=== PATIENT | male | born 1970 | race Hispanic/Latino ===

== ENCOUNTER 2018-11-26 10:39 | Emergency (ER) | payer OTHER ==
[2018-11-26] MEDS ORDERED: CEFTRIAXONE SODIUM 2 GM VIAL ONE (11:00)
[2018-11-26] MEDS ORDERED: SODIUM CHLORIDE 0.9% 50 ML IV ONE (11:01)
[2018-11-26] MEDS ORDERED: SODIUM CHLORIDE 0.9% 1000ML 1,000 ML IV ONE (11:01)
[2018-11-26] MEDS ORDERED: ACETAMINOPHEN EXTRA STRENGTH 500 MG TABLET ONE (11:01)
[2018-11-26 11:43] LABS: BASOPHILS % (AUTO) 0.8 % (0.0-5.0); EOSINOPHILS % (AUTO) 1.5 % (0.0-8.0); HEMATOCRIT 44.7 % (42-54); LYMPHOCYTES % (AUTO) 7.3 % (21.0-51.0); MEAN CORPUSCULAR HEMOGLOBIN 27.4 pg (27.0-33.0); MEAN CORPUSCULAR HGB CONC 32.8 g/dL (32.0-36.0); MEAN CORPUSCULAR VOLUME 83.4 fL (79-99); MONOCYTES % (AUTO) 11.6 % (3.0-13.0); NEUTROPHILS % (AUTO) 78.8 % (40.0-77.0); PLATELET COUNT (AUTO) 156 K/uL (130-400); RED BLOOD CELL COUNT(AUTO) 5.36 MIL/uL (4.50-6.20); RED CELL DISTRIBUTION WIDTH 16.9 % (11.0-15.5)
[2018-11-26 11:51] LABS: CARBON DIOXIDE 25 mmol/L (21-32); CHLORIDE 100 mmol/L (101-111); GLOMERULAR FILTR. RATE CALC 84 mL/min (>60); GLUCOSE,RANDOM 218 mg/dL (70-105); POTASSIUM 3.9 mmol/L (3.5-5.1); SODIUM SERUM 133 mmol/L (136-145); UREA NITROGEN, BLOOD 9 mg/dL (7-18)
[2018-11-26 11:52] LABS: INR 1.39 (0.85-1.15); PROTHROMBIN TIME 14.5 SEC (9.6-11.6)
[2018-11-26 12:02] LABS: ALANINE AMINOTRANSFERASE 111 U/L (12-78); ALBUMIN 3.1 g/dL (3.5-5.0); ASPARTATE AMINOTRANSFERASE 129 U/L (10-37); CREATINE KINASE, TOTAL 80 U/L (21-232); MYOGLOBIN 23 ng/mL (10-92); TOTAL PROTEIN, SERUM 8.8 g/dL (6.0-8.3); TROPONIN I < 0.04 ng/mL (0.00-0.06)
[2018-11-26 12:11] LABS: APPEARANCE,URINE Cloudy (CLEAR); BILIRUBIN,URINE Moderate (NEGATIVE); COLOR,URINE Dark Yellow (YELLOW); GLUCOSE, URINE (UA) Negative (NEGATIVE); KETONES,URINE Trace mg/dL (NEGATIVE); LEUKOCYTE ESTERASE ,URINE Small (NEGATIVE); NITRATE,URINE Positive (NEGATIVE); OCCULT BLOOD,URINE Trace (NEGATIVE); PH,URINE 5.5 (5.0-8.0); PROTEIN,URINE POS 2+ mg/dL (NEGATIVE)
[2018-11-26 12:22] LABS: PARTIAL THROMBOPLASTIN TIME 31.7 SEC (26.3-35.5)
[2018-11-26 12:25] LABS: BACTERIA,URINE Few /HPF (None Seen); MUCUS,URINE Moderate LPF (None Seen); SQUAMOUS EPITHELIAL CELL,UR Few /HPF (0-2); WBC,URINE 0-1 /HPF (0-1)
== END 2018-11-26 13:58 | disposition home or self-care (01) ==
LOC: EDH 10:39 → UNDOADMOB 10:40 → EDHIP 10:40 → EDH 13:58
DX: B34.9 Viral infection, unspecified (principal); E11.9 Type 2 diabetes mellitus without complications; I10 Essential (primary) hypertension
CPT/HCPCS: 36415; 71046; 76705; 80053; 81001; 82550; 83605; 83874; 84484; 85025; 85610; 85730; 87040 ×2; 87088; 87804 ×2; 93005; 96374; 99285; J0696; J7030; 87077; 87186

== ENCOUNTER 2018-12-10 01:36 | Emergency (ER) | payer SELFPAY ==
[2018-12-10] MEDS ORDERED: KETOROLAC TROMETHAMINE 60 MG/2 ML VIAL ONE (02:20)
[2018-12-10] MEDS ORDERED: LIDOCAINE 5% TOPICAL PATCH TP ONE (02:21)
== END 2018-12-10 03:04 | disposition home or self-care (01) ==
LOC: EDH 01:36
DX: G44.209 Tension-type headache, unspecified, not intractable (principal); M62.838 Other muscle spasm; I10 Essential (primary) hypertension; E11.9 Type 2 diabetes mellitus without complications
CPT/HCPCS: 82948; 96372; 99283; J1885

== ENCOUNTER → 2021-10-09 | Outpatient (CLI) | payer OTHER | END | disposition home or self-care (01) | LOC: RAH 15:49 | PROVIDERS: ATTEND Family Medicine | DX: M47.816 Spondylosis without myelopathy or radiculopathy, lumbar region (principal); Z02.71 Encounter for disability determination | CPT/HCPCS: 72100 ==

== ENCOUNTER 2022-01-16 15:17 | Emergency (ER) | payer OTHER ==
[~2022-01-16] VITALS: Ht 160 cm; Wt 100.7 kg
[2022-01-16 15:24] VITALS: BP 157/76
[2022-01-16 16:11] LABS: APPEARANCE,URINE CLEAR (CLEAR); BILIRUBIN,URINE NEGATIVE (NEGATIVE); COLOR,URINE YELLOW (YELLOW); GLUCOSE, URINE (UA) >=1000 mg/dL (NEGATIVE); KETONES,URINE NEGATIVE (NEGATIVE); LEUKOCYTE ESTERASE ,URINE NEGATIVE (NEGATIVE); NITRATE,URINE NEGATIVE (NEGATIVE); OCCULT BLOOD,URINE NEGATIVE (NEGATIVE); PROTEIN,URINE NEGATIVE (NEGATIVE); UROBILINOGEN,URINE 0.2 mg/dL (0.2-1.0)
[2022-01-16 16:12] LABS: BASOPHILS % (AUTO) 0.5 % (0.0-5.0); EOSINOPHILS % (AUTO) 2.2 % (0.0-8.0); HEMATOCRIT 41.3 % (42-54); LYMPHOCYTES % (AUTO) 9.5 % (21.0-51.0); MEAN CORPUSCULAR HEMOGLOBIN 28.4 pg (27.0-33.0); MEAN CORPUSCULAR HGB CONC 32.9 g/dL (32.0-36.0); MEAN CORPUSCULAR VOLUME 86.2 fL (79-99); MONOCYTES % (AUTO) 9.3 % (3.0-13.0); NEUTROPHILS % (AUTO) 78.2 % (40.0-77.0); PLATELET COUNT (AUTO) 104 K/uL (130-400); RED BLOOD CELL COUNT(AUTO) 4.79 MIL/uL (4.50-6.20); RED CELL DISTRIBUTION WIDTH 14.9 % (11.0-15.5); WHITE BLOOD COUNT (AUTO) 5.8 K/uL (4.8-10.8)
[2022-01-16 16:22] LABS: CREATININE 1.2 mg/dL (0.5-1.5); POTASSIUM 3.5 mmol/L (3.5-5.1)
[2022-01-16 16:27] LABS: ALBUMIN 3.4 g/dL (3.5-5.0); CRP QUANTITATIVE 12.4 mg/L (0.00-9.0); TOTAL PROTEIN, SERUM 8.1 g/dL (6.0-8.3)
[2022-01-16] MEDS ORDERED: 0.9%NACL 1000ML 1,000 ML IV SCH (16:30)
[2022-01-16] MEDS ORDERED: INSULIN HUMULIN R 100 UNIT/ML 3ML IV ONE (16:30)
[2022-01-16 16:36] LABS: B-TYPE NATRIURETIC PEPTIDE 12 pg/mL (0-100)
[2022-01-16 16:39] LABS: BACTERIA,URINE Rare /HPF (None Seen); RBC,URINE 0-1 /HPF (0-1); SQUAMOUS EPITHELIAL CELL,UR Rare /HPF (0-2); WBC,URINE 0-1 /HPF (0-1)
[2022-01-16] MEDS ORDERED: LACTULOSE 20 GM/30 ML UDCUP PO ONE (17:00)
[2022-01-16] MEDS ORDERED: LACT10PA5 PO (17:51)
== END 2022-01-16 18:18 | disposition home or self-care (01) ==
LOC: EDH 15:17
DX: E11.9 Type 2 diabetes mellitus without complications (principal); E87.1 Hypo-osmolality and hyponatremia; I10 Essential (primary) hypertension; R79.89 Other specified abnormal findings of blood chemistry; E66.01 Morbid (severe) obesity due to excess calories; D64.9 Anemia, unspecified; Z68.39 Body mass index [BMI] 39.0-39.9, adult; Z20.822 Contact with and (suspected) exposure to COVID-19
CPT/HCPCS: 99284; 96374; 71045; 87635; 96361; 82550; 84484; 80053; 83880; 82140; 85025; 87804 ×2; 82948; 86140; 81001; 36415; J1815; C9803; J7030

== ENCOUNTER 2024-04-24 21:44 | Emergency (ER) | payer BC, MEDICAID ==
[~2024-04-24] VITALS: Ht 160 cm; Wt 80.7 kg
[~2024-04-24 21:44] MED LIST: LACT10PA5 PO
[2024-04-24 21:45] VITALS: BP 167/78; PULSE 86; RESP 16; TEMP 97.8
--- NOTE | 2024-04-24 21:45 | NUR ---
UA CUP PROVIDED
[2024-04-24] MEDS: morPHINE 2 MG SYG IM STA (23:06)
--- NOTE | 2024-04-24 23:49 | ERN ---
ED Note History of Present Illness Stated Complaint: LOW BACK PAIN Chief Complaint: Back Pain-No Injury Time Seen by MD: 21:56 Time Seen by Midlevel: 21:58 Dictation: 53-year-old male with a history of hypertension, diabetes, liver cirrhosis complaining of chronic lower back pain states started over one month ago. Has been seen by PCP and has been sent to a specialist but has a appointment until Friday. Denies any recent traumas. Patient states couple of days ago he was getting up from bed when he felt dizzy and bumped his head with a anymore, however at this time denies having any headache, altered mentation, nausea, vomiting. States they usually give him morphine to control his pain. Allergies: Coded Allergies: No Known Drug Allergies (Unverified Allergy, Unknown, 11/26/18) Home Meds Active Scripts Lactulose (Lactulose) 10 Gm Packet, 10 GM PO DAILY, #30 PKT Prov:MICHI MÉNDEZ 01/16/22 Past Medical History Past Medical History: Anemia, Diabetes-Type II, Hypertension, Liver Disease Additional Past Medical Hx: ULCERS, morbidly obese Surgical History: None Family History: Negative Social History: Negative Review of System Dictation Constitutional: Negative for fever,chills, and weight loss Eyes: Negative for injury, pain,redness, and discharge ENT: Negative for injury,pain or swelling Cardiovascular: Negative for chest pain, palpitations, and edema Respiratory: Negative for shortness of breath, cough, and wheezing, Abdomen/GI: Negative for abdominal pain, nausea, vomiting, diarrhea, and constipation Back: Negative for injury and pain : Negative for injury, bleeding and discharge MS/Extremity: Negative for injury and deformity complaining of lower back pain Skin: Negative for rash, and discoloration Neuro: Negative for headache, weakness, numbness, tingling, and seizure Psych: Negative for suicide ideation, homicidal ideation, and hallucinations Review of Systems: was completed Initial Vital Sign VS Vital Signs Date Time Temp Pulse Resp B/P (MAP) Pulse Ox O2 Delivery O2 Flow Rate FiO2 04/24/24 21:45 97.9 86 16 167/78 100 Room Air Physical Exam Dictation General: awake, alert, NAD Head/Face: Normocephalic, atraumatic Eyes: PERRL, EOMI, vision at baseline ENT: oral cavity clear, TMs clear, no signs of infection Neck: Trachea midline, supple, no nuchal rigidity Cardiovascular: RRR, normal S1/S2, No MRGs, no JVD Respiratory: CTAB, no respiratory distress, No rales or wheezes Abdomen: Soft, non-tender, non-distended, normal bowel sounds, no guarding or r ebound. Skin: Warm, dry, normal turgor, no rash MS/Extremity: Pulses equal, no cyanosis, neurovascular intact, FROM Neuro: COAx4, GCS 15, strength 5/5, CN 2-12 intact, normal cerebellar exam, normal gait, Psych: Normal behavior, mood, and affect normal ED Course ED Course Orders Procedure Category Date Status Time Morphine 2mg Syg PHA 04/24/24 Complete (Morphine 2mg Syg) 22:45 Current Medications Medications (Trade) Dose Ordered Sig/Yakov Route PRN Reason Start Time Stop Time Status Last Admin Dose Admin Morphine Sulfate (morPHINE 2MG SYG) 2 mg ONCE STAT IM 04/24/24 22:45 04/24/24 22:48 DC 04/24/24 23:06 Vital Signs Date Time Temp Pulse Resp B/P (MAP) Pulse Ox O2 Delivery O2 Flow Rate FiO2 04/24/24 21:45 97.9 86 16 167/78 100 Room Air Medical Decision Making MDM MDM: 53-year-old male with a history of hypertension, diabetes, liver cirrhosis complaining of chronic lower back pain states started over one month ago. Has been seen by PCP and has been sent to a specialist but has a appointment until Friday. Denies any recent traumas. Patient states couple of days ago he was getting up from bed when he felt dizzy and bumped his head with a anymore, however at this time denies having any headache, altered mentation, nausea, vomiting. States they usually give him morphine to control his pain. On physical exam patient has clear bilateral lung sounds, abdomen is soft and nondistended. GCS 15, no neurological deficits. Denies any numbness, tingling, saddle anesthesia or incontinence. After morphine IM patient states he felt relief however is requesting more pain medication prior to discharge. Discussed patient that I will give him a prescription to go home with in one more dose of pain medication here in ER but has to follow up with PCP and or the specialist on Friday. Patient verbalized understanding, answered all questions. Differential diagnosis: Chronic back pain, sciatica, muscle spasm Rationale: Tests considered and ordered secondary to shared decision making include: Previous outside records reviewed: Old ER visits. Risk of complication and/or morbidity or mortality of patient management: None Medications-Per medication reconciliation Need for hospitalization: Patient does not meet criteria for hospitalization. Need for emergency major/minor surgery: No There are no social concerns with this patient. Prescription drug management Prescriptions will include symptomatic care Patient's prior external medical records from other ER visits were reviewed by me as indicated. Prior testing and results from previous visits were reviewed. Prior tests were taken into account with medical decision making and resource utilization, independent historian/historians were used to obtain complete medical history. I independently interpreted the test that were performed, results were reviewed by me and considered findings on radiology if ordered. Medical management and examination interpretation discussions were had by me with other qualified healthcare professionals as indicated for the patient's care. DX & DISP Disposition: Discharge Departure Impression: Primary Impression: Back pain Condition: Stable Additional Instructions: Please follow up with your specialist as scheduled on Friday. Return to the ER if symptoms worsen. Referrals: ADRIANA COVINGTON DO (PCP) Time of Disposition: 23:48 I have reviewed the case, and I agree with, Diagnosis and Plan CARYL JAVED NP Apr 24, 2024 23:49
[2024-04-24] MEDS: oxyCODONE/aceTAMIN 5/325MG TAB PO STA (23:56)
== END 2024-04-24 23:59 | disposition home or self-care (01) ==
LOC: EDH 21:44
DX: G89.29 Other chronic pain (principal); M54.50 Low back pain, unspecified; E11.9 Type 2 diabetes mellitus without complications; E66.01 Morbid (severe) obesity due to excess calories; I10 Essential (primary) hypertension; Z79.899 Other long term (current) drug therapy
CPT/HCPCS: 99283; 96372; J2270

== ENCOUNTER 2024-10-30 00:05 | Emergency (ER) | payer BC, MEDICAID ==
[~2024-10-30] VITALS: Ht 160 cm; Wt 70.3 kg
--- NOTE | 2024-10-30 00:08 | NUR ---
UA CUP PROVIDED
[2024-10-30] MEDS: morPHINE 2 MG SYG IVP ONE (00:36)
--- NOTE | 2024-10-30 00:52 | ERN ---
General Chief Complaint: Multiple Complaints Stated Complaint: ABD BLOATING, SOB Time Seen by MD: 00:19 Source: patient History of Present Illness Initial Comments Patient is a 54-year-old male with cirrhosis who gets weekly paracentesis. Unfortunately he was not able to get to his weekly appointment for paracentesis today and so he comes here bloated with rib pain and difficulty breathing. Allergies: Coded Allergies: No Known Drug Allergies (Unverified Allergy, Unknown, 11/26/18) Home Meds Active Scripts Lactulose (Lactulose) 10 Gm Packet, 10 GM PO DAILY, #30 PKT Prov:MICHI MÉNDEZ 01/16/22 Past Medical History Past Medical History: Anemia, Diabetes-Type II, Hypertension, Liver Disease Medical History Other: ULCERS, morbidly obese, LIVER CANCER Past Surgical History: None Family History Family History: Negative Social History Social History: Negative Constitutional: (-) chills, (-) diaphoresis, (-) fever, (-) malaise, (-) weakness, (-) other documentation EENTM: (-) eye pain, (-) blurred vision, (-) tearing, (-) double vision, (-) ear pain, (-) ear discharge, (-) nose pain, (-) nose congestion, (-) throat pain, (-) Throat swelling, (-) mouth pain, (-) tooth pain, (-) mouth swelling, (-) other documentation Respiratory: (-) cough, (-) orthopnea, (-) short of breath, (-) stridor, (-) wheezing, (-) other documentation Cardiovascular: (+) dyspnea on exertion Gastrointestinal/Abdominal: (-) nausea, (-) vomiting, (-) diarrhea, (-) abdominal pain, (-) abdominal distention, (-) constipation, (-) rectal bleeding, (-) dark stool/melena, (-) other documentation Musculoskeletal: (+) Flank Pain Physical Exam General Appearance: (+) mild distress Orientation: (+) alert, (+) oriented x 3 Head/Face Trauma: No Eye: bilateral eye normal inspection, bilateral eye PERRL, bilateral eye EOMI Ear, Nose, Throat: (+) hearing grossly normal, (+) normal ENT inspection Neck: (+) normal inspection, (+) supple Respiratory: (+) chest non-tender, (+) lungs clear, (+) decreased breath sounds Heart: (+) regular, (+) no gallop Vascular: (+) no edema Gastrointestinal: (+) soft, (+) distended Results Laboratory and Microbiology Lab and Micro Result Laboratory Tests Test 10/30/24 00:44 Prothrombin Time 17.6 SEC (9.6-11.6) H Prothromb Time International Ratio 1.76 (0.85-1.15) H MDM Patient is here for his paracentesis. I have ordered ultrasound to igor the skin. We will consent the patient and do a paracentesis. I have ordered PT INR. Patient is at low risk for bleeding. The INR will be a measure of patient's liver function. Patient's INR is 1.76. Please see procedure note for details. 5-1/2 L of bland ascitic fluid was removed, there was no need for albumin replacement. ED Course Orders Procedure Category Date Status Time *Nursing CPOE 10/30/24 Transmitted Communication: 00:19 Prothrombin Time With LAB 10/30/24 Complete INR 00:19 Us Abdominal Ruq\Ltd US 10/30/24 Taken 00:19 Morphine 2mg Syg PHA 10/30/24 Complete (Morphine 2mg Syg) 00:30 Lidocaine 1%-Epi PHA 10/30/24 Complete 1:100,000 (Lidocaine 00:54 Current Medications Medications (Trade) Dose Ordered Sig/Yakov Route PRN Reason Start Time Stop Time Status Last Admin Dose Admin Lidocaine/ Epinephrine (Lidocaine 1%-Epi 1:100,000) 20 ml STK-MED ONCE .ROUTE 10/30/24 00:54 10/30/24 00:54 DC Morphine Sulfate (morPHINE 2MG SYG) 2 mg ONCE ONCE IVP 10/30/24 00:30 10/30/24 00:31 DC 10/30/24 00:36 Vital Signs Date Time Temp Pulse Resp B/P (MAP) Pulse Ox O2 Delivery O2 Flow Rate FiO2 10/30/24 01:13 98.8 75 18 66/ 99 Room Air* 0 21 10/30/24 00:06 98.2 99 22 146/67 99 Room Air Procedure Dictation With the help of ultrasound we found a good window for inserting a catheter for paracentesis. Using the paracentesis kit read numbed up the skin with 1% lidocaine a hole in the skin was created with a 11. Blade. The drainage catheter was placed into the abdominal cavity. And 5-1/2 L were removed. No complications Additional Procedures Additional Procedures : Additional Procedures: other (Paracentesis) DX & DISP Disposition: Discharge Departure Impression: Primary Impression: Ascites due to alcoholic cirrhosis Condition: Stable Additional Instructions: Please return if you have signs and symptoms of an abdominal infection from this procedure or if ascitic fluid keeps draining out of the skin puncture. Referrals: ADRIANA COVINGTON DO (PCP) ALEKS SOLIS MD Oct 30, 2024 00:52
[2024-10-30 01:04] LABS: INR 1.76 (0.85-1.15); PROTHROMBIN TIME 17.6 SEC (9.6-11.6)
[2024-10-30] MEDS: LIDOCAINE 1%-EPI 1:100,000 20 ML VIAL ONE (01:13)
--- NOTE | 2024-10-30 02:07 | NUR ---
PARACENTESIS DONE AT BEDSIDE, CONSENT SECURED REMOVED 5.5L
[2024-10-30 02:24] VITALS: BP 125/65; PULSE 72; RESP 18; TEMP 98.8; O2SAT 99
--- NOTE | 2024-10-30 08:48 | HMCIMG ---
Ultrasound guidance provided for paracentesis done by another practitioner. Impression: Ultrasound guidance provided for paracentesis done by another practitioner.
== END 2024-10-30 02:26 | disposition home or self-care (01) ==
LOC: EDH 00:05
DX: K70.31 Alcoholic cirrhosis of liver with ascites (principal); E11.9 Type 2 diabetes mellitus without complications; I10 Essential (primary) hypertension
CPT/HCPCS: 49083; 99285; 96374; 76705; 85610; 36415; J3490; J2270

== ENCOUNTER 2024-12-10 22:22 | Emergency (ER) | payer MEDICAID ==
[~2024-12-10] VITALS: Ht 160 cm; Wt 71.2 kg
--- NOTE | 2024-12-10 22:25 | NUR ---
UA CUP PROVIDED AND SHOWN TO RESTROOM
--- NOTE | 2024-12-10 22:51 | ERN ---
General Chief Complaint: Back Pain-No Injury Stated Complaint: BACK PAIN, BILATERAL SIDE " CHRONIC" Time Seen by MD: 22:29 Source: patient History of Present Illness Initial Comments Patient is a 54-year-old male with liver cancer who is being treated at [facility]. He lives down here and gets weekly paracentesis therapy. He got paracentesis earlier today. He comes into the emergency room because of excruciating back pain wanting to get some Dilaudid. Allergies: Coded Allergies: No Known Drug Allergies (Unverified Allergy, Unknown, 11/26/18) Home Meds Active Scripts Lactulose (Lactulose) 10 Gm Packet, 10 GM PO DAILY, #30 PKT Prov:MICHI MÉNDEZ 01/16/22 Past Medical History Past Medical History: Anemia, Diabetes-Type II, Hypertension, Liver Disease Medical History Other: ULCERS, morbidly obese, LIVER CANCER STAGE 3 Past Surgical History: None Family History Family History: Negative Social History Social History: Negative Constitutional: (-) chills, (-) diaphoresis, (-) fever, (-) malaise, (-) weakness, (-) other documentation EENTM: (-) eye pain, (-) blurred vision, (-) tearing, (-) double vision, (-) ear pain, (-) ear discharge, (-) nose pain, (-) nose congestion, (-) throat pain, (-) Throat swelling, (-) mouth pain, (-) tooth pain, (-) mouth swelling, (-) other documentation Respiratory: (-) cough, (-) orthopnea, (-) short of breath, (-) stridor, (-) wheezing, (-) other documentation Cardiovascular: (-) chest pain, (-) edema, (-) palpitations, (-) syncope, (-) dyspnea on exertion, (-) other documentation Gastrointestinal/Abdominal: (-) nausea, (-) vomiting, (-) diarrhea, (-) abdominal pain, (-) abdominal distention, (-) constipation, (-) rectal bleeding, (-) dark stool/melena, (-) other documentation Musculoskeletal: (+) back pain, (+) Flank Pain Skin: (-) laceration, (-) contusion, (-) abrasion, (-) abscess, (-) rash, (-) change in color, (-) change in hair, (-) change in nails, (-) diaphoresis, (-) dryness, (-) other documentation Physical Exam General Appearance: (+) mild distress Orientation: (+) alert, (+) oriented x 3 Head/Face Trauma: No Eye: bilateral eye normal inspection, bilateral eye PERRL, bilateral eye EOMI Ear, Nose, Throat: (+) hearing grossly normal, (+) normal ENT inspection Neck: (+) normal inspection, (+) supple Respiratory: (+) chest non-tender, (+) lungs clear, (+) well ventilated Heart: (+) regular, (+) no gallop Vascular: (+) no edema, (+) normal peripheral pulse Gastrointestinal: (+) soft, (+) non-tender Gastrointestinal Comment Abdomen mildly distended but soft consistent with a recent paracentesis. Results Laboratory and Microbiology Lab and Micro Result Laboratory Tests Test 12/10/24 22:30 12/10/24 23:17 Urine Color YELLOW (YELLOW) Urine Appearance CLEAR (CLEAR) Urine pH 5.0 (5.0-8.0) Urine Specific [place] 1.011 (1.001-1.031) Urine Protein NEGATIVE mg/dL (NEGATIVE) Urine Glucose (UA) NEGATIVE mg/dL (NEGATIVE) Urine Ketones NEGATIVE mg/dL (NEGATIVE) Urine Occult Blood NEGATIVE (NEGATIVE) Urine Nitrate NEGATIVE (NEGATIVE) Urine Bilirubin NEGATIVE mg/dL (NEGATIVE) Urine Urobilinogen 0.2 mg/dL (0.2-1.0) Urine Leukocyte Esterase NEGATIVE Jeannette/uL White Blood Count 3.1 K/uL (4.8-10.8) L Red Blood Count 2.83 MIL/uL (4.50-6.20) L Hemoglobin 9.4 g/dL (14.0-18.0) L Hematocrit 28.7 % (42-54) L Mean Corpuscular Volume 101.4 fL (79-99) H Mean Corpuscular Hemoglobin 33.2 pg (27.0-33.0) H Mean Corpuscular Hemoglobin Concent 32.8 g/dL (32.0-36.0) Red Cell Distribution Width 16.9 % (11.0-15.5) H Platelet Count 86 K/uL (130-400) L Mean Platelet Volume 12.2 fL (7.5-10.5) H Immature Granulocyte % (Auto) 0.3 % (0-1) Neutrophils (%) (Auto) 76.1 % (40.0-77.0) Lymphocytes (%) (Auto) 7.5 % (21.0-51.0) L Monocytes (%) (Auto) 10.5 % (3.0-13.0) Eosinophils (%) (Auto) 4.9 % (0.0-8.0) Basophils (%) (Auto) 0.7 % (0.0-5.0) Neutrophils # (Auto) 2.3 K/uL (1.8-7.7) Lymphocytes # (Auto) 0.2 K/uL (1.0-4.8) L Monocytes # (Auto) 0.3 K/uL (0.1-1.0) Eosinophils # (Auto) 0.15 K/uL (0.00-0.70) Basophils # (Auto) 0.02 K/uL (0.00-0.20) Absolute Immature Granulocyte (auto 0.01 K/uL (0-1) Nucleated Red Blood Cells 0.0 % (0.0-0.19) Sodium Level 135 mmol/L (136-145) L Potassium Level 4.0 mmol/L (3.5-5.1) Chloride Level 101 mmol/L (101-111) Carbon Dioxide Level 28 mmol/L (21-32) Blood Urea Nitrogen 20 mg/dL (7-18) H Creatinine 1.3 mg/dL (0.5-1.3) Glomerular Filtration Rate Calc 65 mL/min (>90) Random Glucose 163 mg/dL (70-105) H Total Calcium 8.4 mg/dL (8.5-10.1) L MDM I have actually met this patient before and have performed a paracentesis on him myself. Patient needs pain control for his back and flank associated with his ascites in his liver cancer. The pain is chronic and its presence does not indicate an acute problem. I have given him 1 mg of IV Dilaudid now and I will discharge him with a prescription for 2 mg tablets of Dilaudid. I told him that his doctors at [place] can call down here to a pharmacy to help him with his pain control. He has agreed to do this. Therefore I am going to give him only a small amount of 2 mg p.o. Dilaudid tablets to tide him over until Friday or Friday. I will also get a CBC and a chemistry panel. Patient's CBC shows pancytopenia. Chemistry panels okay urine shows no evidence of infection. Patient himself feels so much better and would like to go home. I will discharge him with a prescription for Dilaudid ED Course Orders Procedure Category Date Status Time Urinalysis Profile LAB 12/10/24 Complete 22:37 Hydromorphone 1 Mg PHA 12/10/24 Complete Inj (Dilaudid 1mg Inj 23:00 Basic Metabolic Panel LAB 12/10/24 Complete 23:00 Cbc With Differential LAB 12/10/24 In Process 23:00 Current Medications Medications (Trade) Dose Ordered Sig/Yakov Route PRN Reason Start Time Stop Time Status Last Admin Dose Admin Hydromorphone HCl (DiLAUDid 1MG INJ) 1 mg ONCE ONCE IVP 12/10/24 23:00 12/10/24 23:01 DC 12/10/24 23:02 Vital Signs Date Time Temp Pulse Resp B/P (MAP) Pulse Ox O2 Delivery O2 Flow Rate FiO2 12/10/24 23:00 98.8 90 18 110/48 99 Room Air* 0 21 12/10/24 22:23 97.9 104 20 111/58 99 Room Air DX & DISP Disposition: Discharge Departure Impression: Primary Impression: Back pain Condition: Stable Scripts Hydromorphone HCl (Dilaudid) 2 Mg Tablet 1 TAB PO [id number] PRN for pain for 5 Days, #10 TAB 0 Refills Prov: ALEKS SOLIS MD 12/10/24 Additional Instructions: Please call your physicians in [place] to renew this prescription. Referrals: ADRIANA COVINGTON DO (PCP) ALEKS SOLIS MD Dec 10, 2024 22:51
[2024-12-10 23:16] LABS: APPEARANCE,URINE CLEAR (CLEAR); GLUCOSE, URINE (UA) NEGATIVE (NEGATIVE); LEUKOCYTE ESTERASE ,URINE NEGATIVE Leu/uL (NEGATIVE); NITRATE,URINE NEGATIVE (NEGATIVE); OCCULT BLOOD,URINE NEGATIVE (NEGATIVE)
[2024-12-10 23:17] LABS: ADD UA MICROSCOPIC NO
[2024-12-10 23:23] LABS: IMMATURE GRANULOCYTE ABSOLUTE 0.01 K/uL (0-1); NUCLEATED RED BLOOD CELLS 0.0 % (0.0-0.19); PLATELET COUNT (AUTO) 86 K/uL (130-400); RED BLOOD CELL COUNT(AUTO) 2.83 MIL/uL (4.50-6.20); RED CELL DISTRIBUTION WIDTH 16.9 % (11.0-15.5); WHITE BLOOD COUNT (AUTO) 3.1 K/uL (4.8-10.8)
[2024-12-10 23:31] LABS: CREATININE 1.3 mg/dL (0.5-1.3); GLOMERULAR FILTR. RATE CALC 65.0 mL/min (>90); GLUCOSE,RANDOM 163.0 mg/dL (70-105); SODIUM SERUM 135.0 mmol/L (136-145); UREA NITROGEN, BLOOD 20.0 mg/dL (7-18)
[2024-12-10] MEDS ORDERED: HYDR2TAB5 PO (23:42)
[2024-12-10 23:58] VITALS: BP 120/69; PULSE 87; RESP 11; TEMP 98.8; O2SAT 99
[2024-12-11 00:17] LABS: WBC MORPHOLOGY CONSISTENT W/DIFF
== END 2024-12-11 00:13 | disposition home or self-care (01) ==
LOC: EDH 22:22
DX: M54.9 Dorsalgia, unspecified (principal); E11.9 Type 2 diabetes mellitus without complications; E66.01 Morbid (severe) obesity due to excess calories; I10 Essential (primary) hypertension; Z79.899 Other long term (current) drug therapy
CPT/HCPCS: 99283; 96374; 80048; 85025; 81003; 36415; J1171

== ENCOUNTER 2024-12-17 23:26 | Emergency (ER) | payer MEDICAID ==
[~2024-12-17] VITALS: Ht 160 cm; Wt 67.1 kg
[~2024-12-17 23:26] MED LIST changes: +HYDR2TAB5 PO
[2024-12-17 23:27] VITALS: BP 124/64; PULSE 97; RESP 20; TEMP 98.7; O2SAT 100
--- NOTE | 2024-12-18 00:23 | ERN ---
General Chief Complaint: Back Pain-No Injury Stated Complaint: LOW BACK PAIN Time Seen by MD: 23:36 Time Seen by Midlevel: 23:36 Source: patient History of Present Illness Initial Comments The patient is a 54-year-old male with a past medical history of liver cancer and chronic back pain presenting to the emergency department for evaluation low back pain. The patient was seen in our emergency department last week for the same complaint. At that time he was given Dilaudid in the emergency department and sent home with a prescription for Dilaudid for a total of 10 tablets. The patient is requesting a new prescription for Dilaudid in his also requesting a dose in the emergency department. Denies any other symptoms Allergies: Coded Allergies: No Known Drug Allergies (Unverified Allergy, Unknown, 11/26/18) Home Meds Active Scripts Hydromorphone HCl (Dilaudid) 2 Mg Tablet, 1 TAB PO [id number] PRN for pain for 5 Days, #10 TAB 0 Refills Prov:ALEKS SOLIS MD 12/10/24 Lactulose (Lactulose) 10 Gm Packet, 10 GM PO DAILY, #30 PKT Prov:MICHI MÉNDEZ 01/16/22 Past Medical History Past Medical History: Anemia, Diabetes-Type II, Hypertension, Liver Disease Medical History Other: ULCERS, morbidly obese, LIVER CANCER STAGE 3, PARACENTESIS Q WEEK Past Surgical History: None Family History Family History: Negative Social History Social History: Negative ROS Dictation CONSTITUTIONAL: Negative except for HPI HEAD/FACE: Negative except for HPI EENT: Negative except for HPI RESPIRATORY: Negative except for HPI GASTROINTESTINAL/ABDOMINAL: Negative except for HPI GENITOURINARY: Negative except for HPI MUSCULOSKELETAL: Negative except for HPI INTEGUMENTARY: Negative except for HPI NEUROLOGICAL/PSYCH: Negative except for HPI HEMATOLOGIC/LYMPHATIC: Negative except for HPI All Systems Negative, Except as noted above. 13 point review of systems assessed and all negative except for above. Physical Exam Physical Exam Dictation Vital Signs reviewed General Appearance: Alert, oriented x 3, no acute distress, well developed, nourished. Head and Face: non-traumatic. Eyes: PERRL, pink conjunctivas, eyelid no trauma, anterior chamber with arcus senilis. Ears: Pinnas intact and no signs of trauma or erythema ear canals clear and no discharge TM no erythema Nose: No discharge, no bleeding. Oropharynx: Mouth normal, tongue pink, pharynx clear,no erythema, tonsils no exudates, no abscesses noted, mucous membrane moist Neck: Supple, non-tender, no thyromegaly, no masses, no JVD, no bruits Breast:Deferred Chest:No tenderness, no crepitus, no paradoxical movement, no retractions Lungs:Clear, well-ventilated, symmetric, no rales, no wheezing, no rhonchi, no stridor, good breath sounds bilaterally Heart: Regular rate, regular rhythm, no murmur, no gallops Vascular: no peripheral edema, Abdomen: Soft, positive bowel sounds, nondistended, no guarding, nontender, no rebound, no masses no hepatomegaly, no splenomegaly, no Nicole's sign, no hernias. Rectal: Deferred Genital: Deferred Neurological: Normal speech, motor function intact, sensory function intact Musculoskeletal: Neck nontender, full range of motion, back nontender, full range of motion, Extremities: nontender, full range of motion Skin: Color pink, dry, no turgor, no rash, no lacerations, no abrasions, no contusions. Lymphatic: Deferred MDM MDM: Differential diagnosis: Drug-seeking behavior, malingering, chronic back pain There are no social concerns with this patient. Prescription drug management Prescriptions will include: None Medical management and examination interpretation discussions were had by me with other qualified healthcare professionals as indicated for the patient's care. ED Course Orders Procedure Category Date Status Time Hydromorphone 1 Mg PHA 12/18/24 Complete Inj (Dilaudid 1mg Inj 00:00 Current Medications Medications (Trade) Dose Ordered Sig/Yakov Route PRN Reason Start Time Stop Time Status Last Admin Dose Admin Hydromorphone HCl (DiLAUDid 1MG INJ) 1 mg ONCE ONCE IV 12/18/24 00:00 12/18/24 00:01 DC 12/17/24 23:55 Vital Signs Date Time Temp Pulse Resp B/P (MAP) Pulse Ox O2 Delivery O2 Flow Rate FiO2 12/17/24 23:27 98.8 97 20 124/64 100 Room Air 12/17/24 23:27 98.8 97 20 124/64 100 Room Air* 0 21 DX & DISP Disposition: Discharge Departure Impression: Primary Impression: Chronic back pain Condition: Stable Additional Instructions: You need to follow up 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 You may take Tylenol and Motrin as needed for pain. Referrals: ADRIANA COVINGTON DO (PCP) Time of Disposition: 00:22 I have reviewed the case, and I agree with, Diagnosis and Plan I performed the substantive portion of the visit. I have reviewed and personally made and approve the management plan that is documented in the note by myself or the KARLI. I acknowledge for responsibility for the patient's m anagement plan. WOO FIGUEREDO Dec 18, 2024 00:23
[2024-12-19] MEDS ORDERED: ORPH100 PO (20:35)
== END 2024-12-18 00:31 | disposition home or self-care (01) ==
LOC: EDH 23:26
DX: G89.29 Other chronic pain (principal); M54.50 Low back pain, unspecified; E11.9 Type 2 diabetes mellitus without complications; E66.01 Morbid (severe) obesity due to excess calories; I10 Essential (primary) hypertension
CPT/HCPCS: 99284; 96374; J1171

== ENCOUNTER 2025-01-09 20:16 | Emergency (ER) | payer MEDICAID ==
[~2025-01-09] VITALS: Ht 157.5 cm; Wt 68.0 kg
[~2025-01-09 20:16] MED LIST changes: +FURO40TA5 PO; +HYDR-4060 PO; -HYDR2TAB5 PO; -LACT10PA5 PO; +SPIR100T5 PO
[2025-01-09 20:42] VITALS: BP 118/52; PULSE 78; RESP 16; TEMP 98.7; O2SAT 98
--- NOTE | 2025-01-09 20:56 | NUR ---
PTS FAMILY MEMBER STATED THEY JUST WANTED TO COME TO THE ER FOR A PARACENTESIS. PT SPOKE TO MD AND AGREED TO HAVE LAB DIAGNOSTICS DRAWN FOR THE PT. UPON THE RN ENTERING THE ROOM, THE FAMILY MEMBER STATES THEY ARE REFUSING LAB DIAGNOSTICS AFTER ALL AND WOULD LIKE TO BE DISCHARGED. MD MADE AWARE.
--- NOTE | 2025-01-09 20:59 | ERN ---
General Chief Complaint: Other Problems Stated Complaint: REQUEST PARACENTESIS, AND SID CATH Time Seen by MD: 20:17 Source: patient History of Present Illness Initial Comments Patient is a 54-year-old male coming in requesting a catheter placement. Per patient has a history of liver cancer and was scheduled to have it then per catheter placed in the past. Per it did not happen on last visit and she is here to see if he is able to have it done today. Allergies: Coded Allergies: No Known Drug Allergies (Unverified Allergy, Unknown, 11/26/18) Home Meds Reported Medications Hydrocodone/Acetaminophen (Hydrocodon-Acetaminophen 5-325) 5 Mg-325 Mg Tablet, 1 TAB PO Q6HPRN PRN for PAIN 12/29/24 Furosemide (Furosemide) 40 Mg Tablet, 1 TAB PO DAILY for 30 Days, #30 TAB 0 Refills 12/29/24 Spironolactone (Spironolactone) 100 Mg Tablet, 1 TAB PO DAILY for 30 Days, #30 TAB 0 Refills 12/29/24 Discontinued Reported Medications Ciprofloxacin HCl (Ciprofloxacin HCl) 500 Mg Tablet, 1 TAB PO DAILY 12/29/24 Past Medical History Past Medical History: Diabetes-Type II, Other Medical History Other: ULCERS, morbidly obese, LIVER CANCER STAGE 3, PARACENTESIS Q WEEK Past Surgical History: Other Surgical History Other: PARACENTESIS Family History Family History: Negative Social History Social History: Negative ROS Dictation CONSTITUTIONAL: No chills, no fever, weakness, no diaphoresis, no malaise. HEAD/FACE: No signs of trauma. EENT: No eye pain, no blurred vision, no tearing, no double vision, no ear pain, no ear discharge, no nose pain, no nasal congestion, no throat pain, no throat swelling, no mouth pain. RESPIRATORY: No cough, no orthopnea, no SOB, no stridor, no wheezing. CARDIOVASCULAR: No chest pain, no edema, no palpitations, no syncope. GASTROINTESTINAL/ABDOMINAL: No abdominal pain, no constipation, no diarrhea, no nausea, no vomiting. GENITOURINARY: No abnormal discharge, no dysuria, no frequent urination, no hematuria. No complaints of pain in the genitals. MUSCULOSKELETAL: No back pain, no gout, no joint pain, no joint swelling, no muscle pain, no muscle stiffness, no neck pain. INTEGUMENTARY: No change in color, no change in hair/nails, no dryness, no lesion, no lumps, no rash. NEUROLOGICAL/PSYCH: No anxiety, not depressed, no emotional problem, no headache, no numbness, no pre-existing deficit, no history of seizures, no tremors, no weakness. HEMATOLOGIC/LYMPHATIC: Not anemic, no history of blood clots, no apparent bleeding, no bruising, glands not swollen. All Systems Negative, Except as Noted. Physical Exam Physical Exam Dictation VITAL SIGNS: Reviewed. GENERAL APPEARANCE: Alert, oriented x3, no acute distress, obese. HEAD AND FACE: Non-traumatic. EYES: PERRL, pink conjunctivas, eyelid no trauma, anterior chamber clear. EARS: Pinnas intact and no signs of trauma or erythema. Ear canals clear and no discharge. TMs no erythema. NOSE: No discharge, no bleeding. OROPHARYNX: Mouth normal, teeth no caries, tongue pink. Pharynx clear, no erythema. Tonsils no exudates, no abscesses noted. Mucous membrane moist. NECK: Supple, non-tender, no thyromegaly, no masses, no JVD, no bruits. BREAST: Deferred. CHEST: No tenderness, no crepitus, no paradoxical movement, no retractions. LUNGS: Clear, well-ventilated, symmetric, no rales, no wheezing, no rhonchi, no stridor, good breath sounds bilaterally. HEART: Regular rate, regular rhythm, no murmur, no gallops. VASCULAR: No peripheral edema. ABDOMEN: Soft, positive bowel sounds, distended, no guarding, nontender, no rebound, no masses no hepatomegaly, no splenomegaly, no Nicole's sign, no hernias. RECTAL: Deferred. GENITAL: Deferred. NEUROLOGICAL: Normal speech, gross motor function intact, gross sensory function intact. MUSCULOSKELETAL: Neck nontender, full range of motion, back nontender, full range of motion. EXTREMITIES: Nontender, full range of motion. SKIN: Color pink, dry, no turgor, no rash, no lacerations, no abrasions, no contusions. LYMPHATICS: Deferred. Results Laboratory and Microbiology Labs Reviewed?: Yes MDM MDM: Differential diagnosis: Liver cancer, liver cirrhosis cancer abdominal distention, ascites, Rationale: Tests considered and ordered secondary to shared decision making include: Previous outside records reviewed: Old ER visits. Risk of complication and/or morbidity or mortality of patient management: None Medications-Per medication reconciliation Need for hospitalization: Patient does not meet criteria for hospitalization. Need for emergency major/minor surgery: No Patient is a 54-year-old male on hospitalist coming in to be evaluated for possible catheter placement. Per she was told to follow up with the hospital to have a catheter placed. Patient states that she did not know IR was not here and states she will follow up with the scheduled on Friday she refused labs and decided to leave. ED Course Vital Signs Date Time Temp Pulse Resp B/P (MAP) Pulse Ox O2 Delivery O2 Flow Rate FiO2 01/09/25 20:42 98.8 78 16 118/52 98 Room Air* 0 21 01/09/25 20:18 98.4 102 20 115/54 97 Room Air DX & DISP Disposition: Discharge Departure Impression: Primary Impression: Primary liver malignancy Condition: Stable Additional Instructions: Patient decided to leave without having any labs performed. I did advise her if she changes her mind she could always come back and we could assess patient with the laboratory workup. Patient refused still and states he will follow up with the PCP accordingly. Referrals: ADRIANA COVINGTON DO (PCP) Time of Disposition: 20:58 SALEEM REYES MD Jan 09, 2025 20:59
== END 2025-01-09 21:10 | disposition home or self-care (01) ==
LOC: EDH 20:16
DX: C22.9 Malignant neoplasm of liver, not specified as primary or secondary (principal); E11.9 Type 2 diabetes mellitus without complications; E66.01 Morbid (severe) obesity due to excess calories; Z79.899 Other long term (current) drug therapy
CPT/HCPCS: 99284